=== PATIENT | female | born 1980 | race Caucasian/White ===

== ENCOUNTER 2020-09-10 10:09 | Emergency (ER) | payer MEDICARE, MEDICAID, SELFPAY ==
[2020-09-10 10:18] VITALS: BP 90/55; PULSE 114; RESP 16; TEMP 37.4; O2SAT 95
--- NOTE | 2020-09-10 10:22 | ED.URI ---
HPI - URI/Sore Throat General Chief Complaint: Upper Respiratory Infection Stated Complaint: VOMITING/SORE THROAT/SOB Time Seen by Provider: 09/10/20 10:22 Source: patient and RN notes reviewed Mode of arrival: ambulatory Limitations: no limitations History of Present Illness HPI Narrative: 40-year-old female presents to the [facility] with caregiver from skilled nursing, complaints of sore throat that started last night. States that she vomited one time a little bit of bile 1 hour prior to arrival. Did have a small cough but the Benadryl fixed it. Denies any fevers, chest pain or abdominal pain. Lives in a skilled nursing currently diagnosed with schizophrenia, bipolar, anxiety, GERD Related Data Home Medications Medication Instructions Recorded Confirmed citalopram mg 09/10/20 clozapine mg 09/10/20 famotidine 09/10/20 levothyroxine 09/10/20 metformin mg 09/10/20 minocycline 09/10/20 trazodone 09/10/20 Allergies Allergy/AdvReac Type Severity Reaction Status Date / Time lithium Allergy Intermediate Nausea and Verified 01/02/18 12:29 Vomiting aripiprazole Allergy Unknown Verified 06/29/13 13:17 Review of Systems Review of Systems: All systems reviewed & are unremarkable except as noted in HPI and below Constitutional: Constitutional: Reports no additional constitutional complaints, Denies chills, Denies fever(s) and Denies weakness Eyes: Eyes: Reports no additional eye complaints ENT: Reports as per HPI, Denies dysphagia, Denies vertigo, Denies dizziness, Denies nasal congestion and Reports sore throat Cardiovascular: Cardiovascular: Reports no additional cardiovascular complaints and Denies chest pain Respiratory: Respiratory: Reports no additional respiratory complaints, Denies chest congestion, Denies cough, Denies dyspnea and Denies wheezing Gastrointestinal: Gastrointestinal: Reports no additional gastrointestinal complaints, Denies abdominal pain, Denies diarrhea, Denies nausea and Reports vomiting (X1 just prior to arrival) Genitourinary: Genitourinary: Reports no additional female genitourinary complaints and Denies dysuria Musculoskeletal: Musculoskeletal: Reports no additional musculoskeletal complaints, Denies back pain, Denies myalgias and Denies muscle cramps Integumentary/Breasts: Skin/Breast: Reports system reviewed and no additional complaints, except as docu Neurologic: Reports system reviewed and no additional complaints, except as documented and Denies headache(s) Psychiatric: Psychiatric: Reports no additional psychiatric complaints PMFSH Past Medical History Medical History Anxiety Bipolar affect, depressed Chronic GERD Schizophrenia Family History Family History Father Family history of diabetes mellitus in first degree relative Social History Social History Smoking status: Never smoker Alcohol intake: never Comments At the time of my signature, I reviewed and agree with the nursing past medical, surgical, social, and family history. There is no relevant family history pertinent to the patient complaint. Exam Const: General: no acute distress, alert and ill appearing chronically Nutritional Appearance: obese Orientation/consciousness: patient oriented x3 Limitations: other limitations (Most questions are being asked by caregiver. Patient not a good historian) HENMT: Head: normal to inspection Ears: external ears normal and TM's normal bilaterally General nose exam: Normal nares present Face and sinus: normal facial exam and sinuses nontender Mouth: Yes lip normal and Yes moist mucous membranes Throat: posterior oropharynx normal and uvula midline Eyes: Pupils: Equal, round and reactive pupils present Neck: Neck: normal visual inspection and no lymphadenopathy Chest: Chest palpation & inspection: normal inspect
[2020-09-10 10:28] VITALS: BP 90/55; PULSE 114; RESP 16; TEMP 37.4; O2SAT 95
== END 2020-09-10 11:02 | disposition home or self-care (01) ==
PROVIDERS: Emergency Provider Nurse Practitioner; PCP Nurse Practitioner Family
DX: J06.9 Acute upper respiratory infection, unspecified (principal); J02.9 Acute pharyngitis, unspecified; K21.9 Gastro-esophageal reflux disease without esophagitis
CPT/HCPCS: 87081; 87880; 99213; G0463

== ENCOUNTER 2021-01-21 13:09 | Emergency (ER) | payer SELFPAY ==
--- NOTE | ~2021-01-21 | XR_ITS ---
EXAMINATION: XR chest 1V portable DATE: 01/21/2021 13:59 INDICATION: Shortness of breath and cough. TECHNIQUE: A single frontal view of the chest was obtained. COMPARISON: Chest 2 views 05/10/2007 FINDINGS: There are mild airspace opacities in perihilar right upper lobe. No pleural effusion or pne umothorax. The heart size is normal. IMPRESSION: 1. Mild airspace opacities in perihilar right upper lobe suspicious for pneumonia. Reviewed, dictated and finalized at location A. IMPRESSION: 1. Mild airspace opacities in perihilar right upper lobe suspicious for pneumon ia.
[2021-01-21 13:19] VITALS: BP 128/79; PULSE 110; RESP 22; TEMP 36.1; O2SAT 97
[2021-01-21 13:25] VITALS: PULSE 110; O2SAT 97
[2021-01-21 13:54] LABS: Basophils Percent Auto 0.1 % (0.2-1.2); Hematocrit 36.2 % (37.0-47.0); Hemoglobin 11.8 g/dL (12.0-15.0); Immature Granulocyte Absolute 0.03 K/mm3 (0.00-0.031); Immature Granulocyte Percent A 0.4 % (0-0.5); Lymphocytes Absolute Auto 1.18 K/mm3 (0.9-3.2); Lymphocytes Percent Auto 15.8 % (18.3-44.2); Mean Corpuscular HGB Conc 32.6 g/dl (32-36); Mean Platelet Volume 10.7 fl (7.4-10.4); Monocytes Absolute Auto 0.8 K/mm3 (0.1-0.6); Monocytes Percent Auto 10.2 % (2.6-8.5); Neutrophils Absolute Auto 5.5 K/mm3 (1.3-6.7); Neutrophils Percent Auto 73.5 % (45.5-73.1); Platelet Count Result 178 k/mm3 (150-375); Red Blood Count 4.21 M/mm3 (4.2-5.4); Red Cell Distribution Width 14.8 % (11.5-14.5); White Blood Count 7.5 K/mm3 (4.5-10.0)
[2021-01-21 14:20] VITALS: BP 117/83; PULSE 104; RESP 20; O2SAT 97
[2021-01-21 14:55] LABS: Anion Gap 8 mmol/L (8-16); Blood Urea Nitrogen 11 mg/dL (7-17); Calcium 8.6 mg/dL (8.4-10.2); Carbon Dioxide 27 mmol/L (22-30); Chloride 104 mmol/L (98-107); Estimated CRCL calculation 76 ml/min; Estimated Glomerular Filt Rate > 60; Glucose 176 mg/dL (65-110); Potassium 3.9 mmol/L (3.4-5.0); Sodium 139 mmol/L (137-145)
[2021-01-21 14:56] LABS: Add Urine Microscopic? YES; Appearance Urine Clear (Clear); Bilirubin Urine Negative (Negative); Blood Urine 2+ (Negative); Color Urine Amber (Yellow); Glucose Urine UA Negative (Negative); Ketones Urine Negative (Negative); Leukocyte Esterase Ur Negative LEU/UL (Negative); Mucus Urine Few /lpf; Nitrate Urine Negative (Negative); Protein Urine 1+ mg/dL (Negative); RBC Urine >75 /hpf (0-2); Specific Grav Ur 1.028 (1.001-1.035); Squamous Epithelial Cell Urine Occasional /hpf (Few); Urobilinogen Urine Negative mg/dL (<2.0)
[2021-01-21 15:04] LABS: NT Pro B Type Natriuretic Pept 55 pg/mL (5-100)
[2021-01-21 16:06] VITALS: BP 111/83; PULSE 102; RESP 18; O2SAT 97
--- NOTE | 2021-01-21 16:16 | ED.SOB ---
HPI - SOB/Dyspnea General Chief Complaint: Shortness of Breath/Dyspnea Stated Complaint: dyspnea Time Seen by Provider: 01/21/21 13:35 Source: patient and other Mode of arrival: ambulatory Limitations: no limitations History of Present Illness HPI Narrative: 40-year-old female Patient resides in a correction Yesterday she had a low-grade fever and they checked oxygen saturations and got results in the range of 92 to 93% A Covid PCR was sent and is pending Although she actually feels somewhat better today they wanted her brought to the ED to be checked She no longer has a fever, wheezing, or any significant shortness of breath No chest pain No GI or symptoms Related Data Home Medications Medication Instructions Recorded Confirmed citalopram mg 09/10/20 clozapine mg 09/10/20 famotidine 09/10/20 levothyroxine 09/10/20 metformin mg 09/10/20 minocycline 09/10/20 trazodone 09/10/20 Allergies Allergy/AdvReac Type Severity Reaction Status Date / Time aripiprazole Allergy Unknown Unknown Verified 01/21/21 13:28 lithium AdvReac Intermediate Nausea and Verified 01/21/21 13:28 Vomiting Review of Systems Review of Systems: All systems reviewed & are unremarkable except as noted in HPI and below Constitutional: Constitutional: Reports no additional constitutional complaints, Reports chills, Reports fever(s) and Denies headache(s) Eyes: Eyes: Reports no additional eye complaints and Denies change in vision ENT: Denies headache(s) and Denies sore throat Cardiovascular: Cardiovascular: Denies chest pain and Denies dyspnea Respiratory: Respiratory: Reports cough and Reports dyspnea Gastrointestinal: Gastrointestinal: Denies abdominal pain, Denies diarrhea and Denies vomiting Genitourinary: Genitourinary: Denies urinary frequency and Denies dysuria Comments: Current menstrual period Musculoskeletal: Musculoskeletal: Denies deformity, Denies arthralgias, Denies joint swelling and Denies numbness Integumentary/Breasts: Skin/Breast: Denies rash and Denies wounds Neurologic: Denies headache(s), Denies focal weakness and Denies numbness Psychiatric: Psychiatric: Reports no additional psychiatric complaints Endocrine: Endocrine: Reports no additional endocrine complaints Hematologic/Lymphatic: Hematologic/Lymphatic: Reports no additional hematologic/lymphatic complaints Allergic/Immunologic: Allergic/Immunologic: Reports no additional allergic/immunologic complaints PMFSH Past Medical History Medical History Anxiety Bipolar affect, depressed Chronic GERD Schizophrenia Family History Family History Father Family history of diabetes mellitus in first degree relative Social History Social History Smoking status: Never smoker Alcohol intake: never Exam Const: General: cooperative, no acute distress and alert Orientation/consciousness: patient oriented x3 (alert) HENMT: Head: normal to inspection, normocephalic and atraumatic Ears: external ears normal General nose exam: no epistaxis Mouth: Yes moist mucous membranes Eyes: Conjunctivae: conjunctivae normal EOM: EOMs intact bilaterally Neck: Neck: normal visual inspection, supple and no JVD Resp: Effort & Inspection: normal respiratory effort and not labored Auscultation: clear to auscultation bilaterally, no rales, no rhonchi, no wheezes and other (BS =) Cardio: Rate: regular rate Rhythm: regular rhythm Heart sounds: no murmurs GI: GI Palp: Yes Soft to palpation and No Tenderness to palpation present (GI) Skin: General skin exam: normal color and no rashes or lesions noted Neuro: General: moves all extremities Speech: normal speech Extrem: General: normal to inspection and no pedal edema Course Course Emergency Course: Reviewed results with patient and
[2021-01-21 16:57] LABS: Lactate Dehydrogenase 446 U/L (313-618)
== END 2021-01-21 16:27 | disposition home or self-care (01) ==
PROVIDERS: Emergency Provider Emergency Medicine; PCP Nurse Practitioner Family
DX: J06.9 Acute upper respiratory infection, unspecified (principal)
CPT/HCPCS: 36415; 71045; 80048; 81001; 82728; 83615; 83880; 85025; 87086; 87088; 99283

== ENCOUNTER 2021-08-29 09:34 | Outpatient (CLI) | payer MEDICARE, MEDICAID, SELFPAY ==
--- NOTE | ~2021-08-29 | MM_ITS ---
EXAMINATION: MM screening marla BI w herbie HISTORY: Screening TECHNIQUE: Craniocaudal and mediolateral oblique 3-D tomosynthesis images were obtained and synthetic 2-D images were generated. CAD analysis was submitted and interpreted. COMPARISON: No prior mammogram is available for comparison at this institution. BREAST PARENCHYMAL COMPOSITION: The breasts are heterogenously dense, which may obscure small masses FINDINGS: There are bilateral masses scattered throughout the right breast in the upper outer quadran t of the left breast. No suspicious calcifications or skin thickening. IMPRESSION: 1. Bilateral breast masses. 2. Additional mammographic views and possible breast ultrasound are recommended. BI-RADS Category 0: Incomplete: Needs additional imaging evaluation. Reviewed, dictated and finalized at location A. IMPRESSION: 1. Bilateral breast masses. 2. Additional mammographic views and possible breast ultrasound are recommended . BI-RADS Category 0: Incomplete: Needs additional imaging evaluation.
== END 2021-08-29 09:35 | disposition home or self-care (01) ==
PROVIDERS: PCP Nurse Practitioner Family; Visit Provider Obstetrics & Gynecology
DX: Z12.31 Encounter for screening mammogram for malignant neoplasm of breast (principal); R92.8 Other abnormal and inconclusive findings on diagnostic imaging of breast
CPT/HCPCS: 77063; 77067

== ENCOUNTER 2021-09-10 13:35 | Outpatient (CLI) | payer MEDICARE, MEDICAID, SELFPAY ==
--- NOTE | ~2021-09-10 | MMUS_ITS ---
EXAMINATION: MM diagnostic marla BI w herbie, US breast BI complete HISTORY: Bilateral breast masses reported, scattered right breast and upper outer left breast, report ed on 08/29/2021 screening mammogram examinations TECHNIQUE: Additional 3-D tomosynthesis images of both breasts were performed and synthetic 2-D image s were generated. CAD analysis was submitted and interpreted. High resolution bilateral complete [address] ultrasound including all 4 quadrants and subareolar areas was performed. COMPARISON: 08/29/2021 bilateral screening mammogram FINDINGS: MAMMOGRAPHIC FINDINGS: 7.8 x 11.7 mm circumscribed oval opacity with halo sign is noted in the posterior aspect of the inner mid right breast at approximately 3:00. This has benign mammographic features. Smaller circumscribed opacities partially obscured by fibroglandular stroma are suggested in the righ t breast. Heterogeneously dense breast stroma bilaterally may obscure additional masses. Therefore bilateral co mplete breast ultrasound examination was performed. ULTRASOUND: No suspicious mass or shadowing of either breast is detected. Right breast: 12:00 5 cm from nipple: Parallel circumscribed hypoechoic 6.8 x 2.6 x 6.6 mm lesion without internal vascularity or suspicious shadowing. 1:00 3 cm from nipple: 5.5 x 3.8 x 5.8 mm sonolucency without internal vascularity or posterior shado wing, consistent with cyst 2:00 7 cm from nipple: 11 x 6.4 x 9 mm simple cyst Left breast: 3:00 2 cm from nipple: 4 x 3 mm sonolucency without internal vascularity or posterior shadowing, like ly a small cyst 4:00 6 cm from nipple: Parallel circumscribed sonolucency measuring 7.4 x 4 x 5 mm, without internal vascularity or posterior shadowing, consistent with cyst IMPRESSION: 1. Benign findings; no mammographic evidence of malignancy 2. Routine mammographic screening is recommended BI-RADS Category 2: Benign finding(s). Reviewed, dictated and finalized at location A. IMPRESSION: 1. Benign findings; no mammographic evidence of malignancy 2. Routine mammographic screening is recommended BI-RADS Category 2: Benign finding(s).
== END 2021-09-10 13:36 | disposition home or self-care (01) ==
PROVIDERS: PCP Nurse Practitioner Family; Visit Provider Obstetrics & Gynecology
DX: R92.8 Other abnormal and inconclusive findings on diagnostic imaging of breast (principal)
CPT/HCPCS: 76641; 77062; 77066; G0279

== ENCOUNTER 2022-04-15 09:02 | Outpatient (CLI) | payer MEDICARE, MEDICAID, SELFPAY | END 2022-04-15 09:03 | disposition home or self-care (01) | LOC: ANHAUDASC 09:02 | PROVIDERS: PCP Nurse Practitioner Family; Visit Provider Nurse Practitioner Family | DX: H91.90 Unspecified hearing loss, unspecified ear (principal) | CPT/HCPCS: 92557; 92567 ==

== ENCOUNTER 2023-06-07 15:45 | Emergency (ER) | payer MEDICARE, MEDICAID, SELFPAY ==
[2023-06-07 15:51] VITALS: BP 126/70; PULSE 94; RESP 16; TEMP 36.3; O2SAT 99
--- NOTE | 2023-06-07 16:52 | ED.EYEPROB ---
HPI - Eye Problem General Chief complaint: Eye Problems Stated complaint: Eye Problem Time Seen by Provider: 06/07/23 15:56 Source: patient and RN notes reviewed Mode of arrival: ambulatory Limitations: no limitations History of Present Illness HPI Narrative: Patient presents today with a left eye issue. She was at work at [address] just prior to arrival and was adding bleach to a lovett of water to clean when it splashed into her left eye. She immediately took her contact out and flushed the eye with water for 3-4 minutes. Denies any current vision changes and states it feels dry. Denies pain. Related Data Home Medications Medication Instructions Recorded Confirmed citalopram 20 mg tablet 20 mg PO DAILY 09/10/20 06/07/23 clozapine 200 mg tablet 200 mg PO DAILY 09/10/20 06/07/23 famotidine 20 mg tablet 20 mg PO DAILY 09/10/20 06/07/23 levothyroxine 50 mcg tablet 50 mcg PO DIRECTED 09/10/20 06/07/23 metformin 500 mg tablet 500 mg PO DAILY 09/10/20 06/07/23 minocycline 100 mg capsule 100 mg PO DIRECTED 09/10/20 06/07/23 trazodone 100 mg tablet 100 mg PO HS 09/10/20 06/07/23 bisacodyl 5 mg tablet,delayed 5 mg PO ONCE 03/18/21 06/07/23 release docusate sodium 100 mg capsule 100 mg PO BID 03/18/21 06/07/23 hydroxyzine pamoate 25 mg capsule 25 mg PO BID 03/18/21 06/07/23 bupropion HCl 150 mg 24 hr tablet, 150 mg PO DAILY 06/07/23 06/07/23 extended release Allergies Allergy/AdvReac Type Severity Reaction Status Date / Time aripiprazole Allergy Unknown Unknown Verified 06/07/23 16:00 lithium AdvReac Intermediate Nausea and Verified 06/07/23 16:00 Vomiting Review of Systems Review of Systems: CONSTITUTIONAL: Denies body aches, fever, chills, or sweats. EYES: + left eye injury. ENT: Denies rhinorrhea, congestion, sore throat, or otalgia. CARDIOVASCULAR: Denies chest pain, palpitations, or edema. RESPIRATORY: Denies cough or dyspnea. GASTROINTESTINAL: Denies abdominal pain, nausea, vomiting, or diarrhea. GENITOURINARY: Denies dysuria or hematuria. SKIN: Denies rash, itching, or wounds. MUSCULOSKELETAL: Denies back pain, joint pain, or myalgia. NEUROLOGIC: Denies headache, numbness, tingling, or weakness. PSYCH: Denies depression or anxiety. [facility] Past Medical History Medical History Anxiety Bipolar affect, depressed Chronic GERD Pre-diabetes Schizophrenia Thyroid disorder Surgical History Surgical History Hx of oral surgery Family History Family History Father Family history of diabetes mellitus in first degree relative Cerebrovascular accident Mother Asthma Cancer Heart disease Thyroid disorder Grandparent Alcoholism Social History Social History Smoking status: Never smoker Alcohol intake: never Substance use: never Substance use type: does not use Do You Feel Safe in your Home?: Yes Lack of Transportation: No Lack of Food: Never True Current Housing: I Have Housing Concerned About Future Housing: No Difficulty Paying Gas/Electric Bills: No Difficulty Paying for Meds: No Currently Unemployed: No Education: High School Diploma/GED Difficulty w/ Childcare or Family Care: No Comments At time of signature, I have reviewed and agree with nursing past medical, surgical, social and family history unless otherwise noted. Please see nursing chart for further information. There is no relevant family history pertinent to the presenting complaint Exam Narrative: GENERAL: Well-appearing, well-nourished, and in no acute distress. HEAD: Normocephalic, atraumatic. EYES: EOMI. PERRL. Mildly injected conjunctiva. Lids and lashes normal. Right eye normal. See procedure note. ENT: Mucous membranes pink and moist
--- NOTE | 2023-06-07 16:57 | PC.NURSE ---
1556- GRINDER OPERATOR EXTERNAL TOOL contacted poison control at [facility] to get recommendations.
--- NOTE | 2023-06-07 17:03 | PC.NURSE ---
1610- iv bag of saline hanging flushing out pts left eye, pt unable to tolerate esteban lens so we just have tubing taped so it flushes across the eyeball itself and pt is doing a great job of holding eye open for flushing. friend at bedside and talking to her.
== END 2023-06-07 17:31 | disposition home or self-care (01) ==
PROVIDERS: Emergency Provider Nurse Practitioner; PCP Nurse Practitioner Family
DX: T54.91XA Toxic effect of unspecified corrosive substance, accidental (unintentional), initial encounter (principal); T26.62XA Corrosion of cornea and conjunctival sac, left eye, initial encounter; Y99.0 Civilian activity done for income or pay; K21.9 Gastro-esophageal reflux disease without esophagitis; R73.03 Prediabetes; F41.9 Anxiety disorder, unspecified
CPT/HCPCS: 99213; A9270; G0463; J7030

== ENCOUNTER 2023-08-01 12:37 | Emergency (ER) | payer MEDICARE, MEDICAID, SELFPAY ==
[2023-08-01 12:49] VITALS: BP 100/74; PULSE 98; RESP 16; TEMP 36.6; O2SAT 100
--- NOTE | 2023-08-01 12:53 | ED.URI ---
HPI - URI/Sore Throat General Chief Complaint: Upper Respiratory Infection Stated Complaint: Cold Symptoms Time Seen by Provider: 08/01/23 13:05 Source: patient and RN notes reviewed Mode of arrival: ambulatory Limitations: no limitations History of Present Illness HPI Narrative: 43-year-old female presents with concern for 2 week history of sinus pressure, congestion. She reports she has been taking [id number] medications without relief. MD elicited complaint: nasal congestion Related Data Home Medications Medication Instructions Recorded Confirmed citalopram 20 mg tablet 20 mg PO DAILY 09/10/20 06/07/23 clozapine 200 mg tablet 200 mg PO DAILY 09/10/20 06/07/23 famotidine 20 mg tablet 20 mg PO DAILY 09/10/20 06/07/23 levothyroxine 50 mcg tablet 50 mcg PO DIRECTED 09/10/20 06/07/23 metformin 500 mg tablet 500 mg PO DAILY 09/10/20 06/07/23 minocycline 100 mg capsule 100 mg PO DIRECTED 09/10/20 06/07/23 docusate sodium 100 mg capsule 100 mg PO BID 03/18/21 06/07/23 hydroxyzine pamoate 25 mg capsule 25 mg PO BID 03/18/21 06/07/23 bupropion HCl 150 mg 24 hr tablet, 150 mg PO DAILY 06/07/23 06/07/23 extended release Allergies Allergy/AdvReac Type Severity Reaction Status Date / Time aripiprazole Allergy Unknown Unknown Verified 07/09/23 08:20 lithium AdvReac Intermediate Nausea and Verified 07/09/23 08:20 Vomiting Review of Systems Review of Systems: CONSTITUTIONAL: Denies malaise, chills, sweats, or fever. EYES: Denies visual changes, redness, or discharge. ENT: Reports rhinorrhea, congestion, sinus pain CARDIOVASCULAR: Denies chest pain, palpitations, or edema. RESPIRATORY: Denies cough. Denies dyspnea. GASTROINTESTINAL: Denies abdominal pain, nausea, vomiting, diarrhea SKIN: Denies rash or itching. MUSCULOSKELETAL: Denies myalgia. NEUROLOGIC: Denies headache. All systems reviewed & are unremarkable except as noted in HPI and below PMFSH Past Medical History Medical History Anxiety Bipolar affect, depressed Chronic GERD Pre-diabetes Schizophrenia Thyroid disorder Surgical History Surgical History Hx of oral surgery Family History Family History Father Family history of diabetes mellitus in first degree relative Cerebrovascular accident Mother Asthma Cancer Heart disease Thyroid disorder Grandparent Alcoholism Social History Social History Smoking status: Never smoker Alcohol intake: never Substance use: never Substance use type: does not use Do You Feel Safe in your Home?: Yes Lack of Transportation: No Lack of Food: Never True Current Housing: I Have Housing Concerned About Future Housing: No Difficulty Paying Gas/Electric Bills: No Difficulty Paying for Meds: No Currently Unemployed: No Education: High School Diploma/GED Difficulty w/ Childcare or Family Care: No Comments At time of signature, agree with nursing past medical, surgical, social and family history. There is no relevant family history pertinent to the presenting complaint Exam Narrative: GENERAL: Well-appearing, well-nourished, and in no acute distress. HEAD: Normocephalic EYES: PERRLA, conjunctivae clear ENT: Nares clear, turbinates edematous and erythematous. Mucous membranes moist. TM pearly pike with dull light reflex bilaterally; no tragal tenderness. Oropharynx not erythematous without lesions. Tonsils not enlarged and without exudate, no drooling, no hoarseness, no trismus, uvula midline. NECK: Supple. No lymphadenopathy CHEST: Clear to auscultation, breath sounds equal. No wheezing, rhonchi, rales, or stridor. No respiratory distress, speaks in full sentences. HEART: Regular rate and rhythm. No murmur heard. SKIN: Warm, dry, no rash. NEURO: Alert and oriented
== END 2023-08-01 13:19 | disposition home or self-care (01) ==
PROVIDERS: Emergency Provider Nurse Practitioner
DX: J32.9 Chronic sinusitis, unspecified (principal); K21.9 Gastro-esophageal reflux disease without esophagitis; R73.03 Prediabetes; F41.9 Anxiety disorder, unspecified
CPT/HCPCS: 99213; G0463

== ENCOUNTER 2023-11-10 08:06 | Outpatient (CLI) | payer MEDICARE, MEDICAID, SELFPAY ==
--- NOTE | ~2023-11-10 | MM_ITS ---
EXAMINATION: MM screening marla BI w herbie HISTORY: Screening TECHNIQUE: Craniocaudal and mediolateral oblique 3-D tomosynthesis images were obtained and synthetic 2-D images were generated. CAD analysis was submitted and interpreted. COMPARISON: Comparison to multiple prior studies sequentially, with oldest reviewed study dated 08/29. BREAST PARENCHYMAL COMPOSITION: Dense: The breasts are heterogeneously dense, which may obscure small masses FINDINGS: New focal asymmetry superiorly in the left breast on MLO view, middle third. The right [address] is stable. No significant change to benign-appearing mass in the lower inner quadrant of the right breast with central lucency, likely benign cysts. IMPRESSION: 1. New focal asymmetry left breast superiorly on MLO view. 2. Additional mammographic views and possible breast ultrasound are recommended. BI-RADS Category 0: Incomplete: Needs additional imaging evaluation. Reviewed, dictated and finalized at location B. IMPRESSION: 1. New focal asymmetry left breast superiorly on MLO view. 2. Additional mammographic views and possible breast ultrasound are recommended . BI-RADS Category 0: Incomplete: Needs additional imaging evaluation.
== END 2023-11-10 08:07 | disposition home or self-care (01) ==
LOC: ANHIMG 08:09
PROVIDERS: Visit Provider Nurse Practitioner Family
DX: Z12.31 Encounter for screening mammogram for malignant neoplasm of breast (principal); R92.8 Other abnormal and inconclusive findings on diagnostic imaging of breast
CPT/HCPCS: 77063; 77067

== ENCOUNTER 2023-12-22 13:02 | Outpatient (CLI) | payer MEDICARE, MEDICAID, SELFPAY ==
--- NOTE | ~2023-12-22 | MMUS_ITS ---
EXAMINATION: US breast LT limited, MM diagnostic marla LT w herbie HISTORY: Follow-up breast asymmetry TECHNIQUE: Additional 3-D tomosynthesis images of the left breast were performed and synthetic 2-D im ages were generated. CAD analysis was submitted and interpreted. High resolution Limited left breast ultrasound was performed. COMPARISON: Comparison to multiple prior studies sequentially, with oldest reviewed study dated 09/10/2021. BREAST PARENCHYMAL COMPOSITION: Dense: The breasts are heterogeneously dense, which may obscure small masses FINDINGS: MAMMOGRAPHIC FINDINGS: There are no discrete masses or architectural distortion or suspicious calcifications. Left breast as ymmetry in the upper outer quadrant is less dense with spot compression views. ULTRASOUND: Complete US of all 4 quadrants of the breast/s and retroareolar region was reviewed. There are cyst a t 3:00, 2 cm from the nipple measuring 4 mm and 4:00, 6 cm from the nipple measuring 6 mm. IMPRESSION: 1. No evidence for malignancy in the left breast. Benign findings. 2. Routine yearly screening mammogram and regular clinical breast examination are recommended. BI-RADS Category 2: Benign finding(s). Reviewed, dictated and finalized at location B. IMPRESSION: 1. No evidence for malignancy in the left breast. Benign findings. 2. Routine yearly screening mammogram and regular clinical breast examination a re recommended. BI-RADS Category 2: Benign finding(s).
== END 2023-12-22 13:03 | disposition home or self-care (01) ==
LOC: ANHIMG 13:05
PROVIDERS: PCP Nurse Practitioner Family; Visit Provider Nurse Practitioner Family
DX: R92.8 Other abnormal and inconclusive findings on diagnostic imaging of breast (principal)
CPT/HCPCS: 76642; 77061; 77065; G0279

== ENCOUNTER 2025-01-19 13:02 | Outpatient (CLI) | payer MEDICARE, MEDICAID, SELFPAY ==
--- OUTSIDE RECORDS SUMMARY | 2005-07-30 06:30 | XMS_ITS | Continuity of Care Document ---
Author Organization [facility] Address [address] [place] [address] Phone Care Team Providers Care Upper Cutter Out Name Role Phone Dhaliwal OD, Joseph Unavailable Unavailable Advance Directives Directive Yes / No Effective Date File Name No Information Encounters Encounter Description Practice Location Reason(s) For Visit Diagnoses Date Provider Providers Copied on Encounter [facility], [address], [place], [place], [id number], [place] tel:[phone] [facility] No Information 3-200 6 Dhaliwal OD Joseph. [address] , [address], [place], [address], [place]. tel:[phone] Family History Family Member Type Diagnosis Age At Onset No Information Payers Payer name Insurance type Covered democrat ID Authoriza tiale(s) [facility] [id number] Medicaid [facility] [id number] Social History Type Description Quantity Date Captured Comments Sex Female Smoking Status No Information Chief Complaint And Reason For Visit No Information Reason For Referral Reason For Referral No Information History Of Present Illness Encounter Date Complaint History Of Prese nt Illness No Information Functional Status Date Functional Assessmen t No Information Instructions Date Instruction Additional Infor mation No Information Assessments Type Assessment Date No Information Patient Care Teams Name Effective Dates (start - stop) Status Members No Information
--- NOTE | ~2025-01-19 | MM_ITS ---
EXAMINATION: MM screening marla BI w herbie HISTORY: Screening TECHNIQUE: Craniocaudal and mediolateral oblique 3-D tomosynthesis images were obtained and synthetic 2-D images were generated. CAD analysis was submitted and interpreted. COMPARISON: Comparison to multiple prior studies sequentially, with oldest reviewed study dated 08/29/2021. BREAST PARENCHYMAL COMPOSITION: Dense: The breasts are heterogeneously dense, which may obscure small masses FINDINGS: There is no evidence of suspicious mass, calcification, or architectural distortion to suggest malignancy in either breast. There has been no suspicious interval change. IMPRESSION: 1. No mammographic evidence of malignancy. 2. Recommend routine screening mammography in one year. BI-RADS Category 1: Negative Reviewed, dictated and finalized at location B.
--- OUTSIDE RECORDS SUMMARY | 2025-01-19 13:37 | XMS_ITS | Patient Health Record ---
Author Organization [facility] Address [address] [place] [address] Care Team Providers Care Policy Issue Clerk Name Role Phone Lanie Kwon Primary Care Provider Allergies Allergen (clinical drug ingredient) Drug/Non Drug Allergy documented on EMR Reaction Allergy Type Onset Date Status lithium Hendricks uncontrollable bowls Drug Allergy Active Reason For Referral No Information Medications Medication SIG (Take, Route, Frequency, Duration) Notes Start Date End Date Status Robafen 100 MG/5ML 10 ml as needed Orally every 4 hrs Active Bisacodyl EC 5 MG 1 tablet as needed Orally Once a day; Duration: 30 day(s) Active cloZAPine 100 MG 1 tablet bedtime with 200 mg Orally Once a day; Duration: 30 days Active cloZAPine 100 MG 1 tablet at bedtime Orally Once a day; Duration: 30 days D/C previous dose of Clozapine 400 mg at bedtime. 01/27/2024 Not-Taking ARIPiprazole 20 MG 1 tablet Orally Once a day; Duration: 30 days Active metFORMIN HCl 500 MG 1 tablet with a meal Orally twice a day Not-Taking Wellbutrin XL 150 MG 1 tablet in the morning Orally Once a day; Duration: 30 days Active Docusate Sodium 100 MG 1 capsule as needed Orally Once a day; Duration: 30 day(s) Active Vistaril 25 MG 2 capsule Orally three times a day; Duration: 30 days Active Levothyroxine Sodium 50 MCG 1 tablet in the morning on an empty stomach Orally Once a day; Duration: 30 day(s) Active CeleXA 40 MG 1 tablet Orally Once a day; Duration: 30 days Active Famotidine 20 MG 1 tablet at bedtime as needed Orally Twice a day Active Minocycline HCl 100 MG 1 capsule Orally every 12 hrs; Duration: 10 day(s) Active cloZAPine 200 MG 1 tablets bedtime (with 100 mg ) Orally Once a day; Duration: 30 days Active Rybelsus 7 MG 1 tablet at least 30 minutes before first food, beverage or other oral medicine of the day Orally Once a day; Duration: 30 day(s) Active hydrOXYzine HCl 25 MG 1 tablet as needed Orally every 8 hrs; Duration: 30 day(s) Active Acetaminophen 325 MG 1 tablet as needed Orally every 4 hrs Active Immunizations Vaccine Route Administration Date Status Comme nts FLU VAC NO PRSV 4VAL 6 mo+ IM Intramuscular 01/18/2024 Administered Pt constanza well. Social History Tobacco Use: Social History Observation Description Date Details (start date - stop date) Never Smoker NA - NA Sex Assigned At : Social History Observation Description Sex Assigned At Female Tobacco Control (Standard) Question Answer Notes Tobacco use: Nonsmoker Problems Problem Type SNOMED Code ICD Code Onset Dates Problem Status W/U Status Risk Notes Problem Schizophrenia (02967378) Schizophrenia (F20.9) Active confirmed Problem Overweight (208053184) Over weight (E66.3) Active confirmed Vital Signs Heart Rate 91 /min 12/19/2024 Respiratory Rate 16 /min 12/19/2024 Oximetry 98 % 12/19/2024 Blood pressure diastolic 82 mm Hg 12/19/2024 Height 61in in 12/19/2024 Blood pressure systolic 126 mm Hg 12/19/2024 Weight 186.2lbs lbs 12/19/2024 BMI 35.18 kg/m2 12/19/2024 Encounters Encounter Location Date Provider Diagnosis [address] [address] 03/28/2024 [facility] Z71.3 ; Encounter for immunization Z23 and Schizophrenia F20.[address] [address] 05/30/2024 [facility] counsel[facility] Z71.3 ; Encounter for immunization Z23 and Schizophrenia F20.[address] [address] 06/27/2024 [facility]al counseli ng Z71.3 ; Encounter for immunization Z23 and Schizophrenia F20.[address] [address] 09/26/2024 [facility] Nutrition[facility] counsel[facility] ng Z71.3 ; Encounter for immunization Z23 and Schizophrenia F20.[address] [address] 11/21/2024 Arif Habib Over weight E66.3 ; Nutritional counseling Z71.3 ; Encounter for immunization Z23 and Schizophrenia F20.[address] [address] 12/19/2024 Arif Habib Over weight E66.3 ; Nutritional counseling Z71.3 ; Encounter for immunization Z23 and Schizophrenia F20.[address] [address] 01/27/2024 Arif Habib Schizophrenia F20.[address] [address] 05/25/2024 Arif Habib [address] [address] 05/30/2024 Arif Habib Assessments Encounter Date Diagnosis (ICD Code) Assessment Notes Treatment Notes Treatment Clinical Notes Section Notes 01/27/2024 Schizophrenia (ICD-10 - F20.9) 03/28/2024 Nutritional counseling (ICD-10 - Z71.3) 05/30/2024 Nutritional counseling (ICD-10 - Z71.3) 06/27/2024 Nutritional counseling (ICD-10 - Z71.3) 09/26/2024 Nutritional counseling (ICD-10 - Z71.3) 11/21/2024 Over weight (ICD-10 - E66.3) 12/19/2024 Over weight (ICD-10 - E66.3) 12/19/2024 Nutritional counseling (ICD-10 - Z71.3) 11/21/2024 Nutritional counseling (ICD-10 - Z71.3) 09/26/2024 Encounter for immunization (ICD-10 - Z23) Ordered per standing orders for administering influenza vaccine to adults. 06/27/2024 Encounter for immunization (ICD-10 - Z23) Ordered per standing orders for administering influenza vaccine to adults. 05/30/2024 Encounter for immunization (ICD-10 - Z23) Ordered per standing orders for administering influenza vaccine to adults. 03/28/2024 Encounter for immunization (ICD-10 - Z23) Ordered per standing orders for administering influenza vaccine to adults. 03/28/2024 Schizophrenia (ICD-10 - F20.9) risk & benefits discussed. Continue Cloazaril 300 mg HS. Will repeat Clozarillevel . Continue other treatment. No seizure reported. Diet & exercise. Side effects discussed. She sees her PCP every 6 months. 05/30/2024 Schizophrenia (ICD-10 - F20.9) risk & benefits discussed. Continue Cloazaril 300 mg HS. Will repeat Clozaril level. Add Abilify 10 mg daily for psychosis. Continue other treatment. No seizure reported. Diet & exercise. Side effects discussed. She sees her PCP every 6 months. 06/27/2024 Schizophrenia (ICD-10 - F20.9) risk & benefits discussed. Increase Abilify 20 mg daily. Continue other treatment. 09/26/2024 Schizophrenia (ICD-10 - F20.9) risk & benefits discussed. Continue other treatment. check labs. 11/21/2024 Encounter for immunization (ICD-10 - Z23) Ordered per standing orders for administering influenza vaccine to adults. 12/19/2024 Encounter for immunization (ICD-10 - Z23) Ordered per standing orders for administering influenza vaccine to adults. 12/19/2024 Schizophrenia (ICD-10 - F20.9) risk & benefits discussed. Continue other treatment. Increase Vistaril 50 mg TID for anxiety. 11/21/2024 Schizophrenia (ICD-10 - F20.9) risk & benefits discussed. Continue other treatment. Increase Vistaril 50 mg TID for anxiety. Plan Of Treatment Next Appt Details Provider Name:Lanie Camachorojelio, 10:50:00 AM, [address], [place], [address], Insurance Providers Payer Name Payer Address Payer Phone Subscriber Number Group Number Insured Name Patient Relationship to Insured Coverage Start Date Coverage End Date MEDICARE PART A [address] [place] [phone] [id number] [employer] tra[employer]ree Self - patient is the insured 1 MEDICAID [address] [phone] [id number] [employer] Self - patient is the insured 1 Medical (General) History Medical History History ICD Code Bipolar Schizophrenia Surgical History Surgery Date(Month/Year) Hospitalization History Reason Date(Month/Year) Urgent care for sinus infection August 06
== END 2025-01-19 13:03 | disposition home or self-care (01) ==
LOC: ANHFOHIMG 13:35
PROVIDERS: PCP Nurse Practitioner Family; Visit Provider Obstetrics & Gynecology
DX: Z12.31 Encounter for screening mammogram for malignant neoplasm of breast (principal)
CPT/HCPCS: 77063; 77067